=== PATIENT | male | born 1950 | race Caucasian/White ===

== ENCOUNTER 2018-01-29 04:28 | Emergency (ER) | payer MEDICARE, MEDICAID ==
[~2018-01-29] VITALS: Ht 190.5 cm; Wt 100.0 kg
[~2018-01-29 04:28] MED LIST: AMLO2.5T2 PO; APIX5TAB3 PO; GABA800T2 PO; LEVO300T2 PO; LEVO5TAB13 PO; LISI40TA4 PO; METF500T7 PO; ROSU10TA PO; TRAM50TA2 PO; WALKERFR
[2018-01-29 07:30] VITALS: BP 117/77
== END 2018-01-29 07:32 | disposition home or self-care (01) ==
LOC: ER 04:29
DX: H61.23 Impacted cerumen, bilateral (principal); E11.9 Type 2 diabetes mellitus without complications; I10 Essential (primary) hypertension; Z98.890 Other specified postprocedural states; Z79.84 Long term (current) use of oral hypoglycemic drugs; Z88.8 Allergy status to other drugs, medicaments and biological substances; Z79.899 Other long term (current) drug therapy
CPT/HCPCS: 69210; 99284

== ENCOUNTER 2019-10-19 08:01 | Emergency (ER) | payer MEDICARE, MEDICAID ==
[~2019-10-19] VITALS: Ht 185.4 cm; Wt 100.0 kg
[~2019-10-19 08:01] MED LIST changes: +GABA800T11 PO; -GABA800T2 PO; +METF500T20 PO; -METF500T7 PO; -ROSU10TA PO; +ROSU10TA2 PO
[2019-10-19 08:13] VITALS: BP 122/49
[2019-10-19] MEDS ORDERED: bupivacaine 0.25%/epinephrine 1:200,000 inj (contains preserv. MDV) IJ ONE (08:25)
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
== END 2019-10-19 10:08 | disposition home or self-care (01) ==
LOC: ER 08:02
DX: S46.911A Strain of unspecified muscle, fascia and tendon at shoulder and upper arm level, right arm, initial encounter (principal); I48.91 Unspecified atrial fibrillation; I10 Essential (primary) hypertension; E11.9 Type 2 diabetes mellitus without complications; Z98.890 Other specified postprocedural states; Z88.5 Allergy status to narcotic agent; Z88.8 Allergy status to other drugs, medicaments and biological substances; Z79.01 Long term (current) use of anticoagulants; Z79.899 Other long term (current) drug therapy; W18.40XA Slipping, tripping and stumbling without falling, unspecified, initial encounter; Y93.89 Activity, other specified; Y92.009 Unspecified place in unspecified non-institutional (private) residence as the place of occurrence of the external cause; Y99.8 Other external cause status
CPT/HCPCS: 20552; 73030; 93005; 99284

== ENCOUNTER 2020-02-05 15:07 | Emergency (ER) | payer MEDICARE, MEDICAID ==
[~2020-02-05] VITALS: Ht 185.4 cm; Wt 105.8 kg
[~2020-02-05 15:07] MED LIST changes: +METF-900 PO; -METF500T20 PO
[2020-02-05 17:20] LABS: BASOPHILS # (AUTO) 0.1 X10'3 (0-0.2); EOSINOPHILS # (AUTO) 0.2 X10'3 (0-0.9); EOSINOPHILS % (AUTO) 2.2 % (0-6); HEMOGLOBIN 17.1 g/dl (14.0-17.9); MEAN CORPUSCULAR VOLUME 89.7 FL (78-98)
[2020-02-05 17:22] LABS: BASOPHILS % (AUTO) 0.9 % (0-1); HEMATOCRIT 50.2 % (42.0-52.0); LYMPHOCYTES # (AUTO) 2.4 X10'3 (1.1-4.8); LYMPHOCYTES % (AUTO) 27.6 % (21-51); MEAN CORPUSCULAR HEMOGLOBIN 30.5 PG (27.0-31.0); MEAN PLATELET VOLUME 8.3 FL (7.4-10.4); MONOCYTES # (AUTO) 0.7 X10'3 (0-0.9); MONOCYTES % (AUTO) 8.5 % (2-12); NEUTROPHILS # (AUTO) 5.2 X10'3 (1.8-7.7); NEUTROPHILS % (AUTO) 60.8 % (42-75); PLATELET COUNT 172 X10'3 (140-440); RED CELL DISTRIBUTION WIDTH 13.8 % (11.5-14.5); WHITE BLOOD COUNT 8.5 X10'3 (4.5-11.0)
[2020-02-05 17:45] LABS: ALANINE AMINOTRANSFERASE 58 U/L (12-78); ALBUMIN/GLOBULIN RATIO 1.2 (1.1-1.5); ALKALINE PHOSPHATASE 113 IU/L (46-116); ANION GAP 14 (8-16); ASPARTATE AMINO TRANSFERASE 24 U/L (10-37); BILIRUBIN,TOTAL 0.4 MG/DL (0.1-1.0); BLOOD UREA NITROGEN 21 MG/DL (7-18); BUN/CREATININE RATIO 16.3 (5.4-32.0); CALCIUM 9.1 MG/DL (8.5-10.1); CHLORIDE 103 MMOL/L (99-107); CREATININE 1.29 MG/DL (0.60-1.10); GLUCOSE 122 MG/DL (70-104); POTASSIUM 4.5 MMOL/L (3.5-5.1); SODIUM 140 MMOL/L (135-145); TOTAL CARBON DIOXIDE 23.3 MMOL/L (24-32); TOTAL PROTEIN 7.3 G/DL (6.4-8.2); eGFR 55 ML/MIN
[2020-02-05 18:00] LABS: CLARITY,URINE CLEAR (Clear); COLOR,URINE YELLOW (Yellow); GLUCOSE, URINE 250 mg/dl (Neg); KETONES,URINE NEGATIVE (Neg); LEUKOCYTE ESTERASE ,URINE NEGATIVE (Neg); NITRITES, URINE NEGATIVE (Neg); OCCULT BLOOD,URINE SMALL (Neg); PH,URINE 5.5 (4.8-8.0); PROTEIN,URINE NEGATIVE (Neg); UROBILINOGEN,URINE 0.2 E.U/dL (0.2-1.0)
[2020-02-05 18:03] LABS: UA COLLECTION TYPE CLN CATCH MIDSTREAM
[2020-02-05 18:21] LABS: BACTERIA,URINE NONE SEEN /HPF (Neg); RBC,URINE 0-2 /HPF (0-2); SQUAMOUS EPITHELIAL CELL,UR NONE SEEN /LPF (FEW); WBC,URINE NONE SEEN /HPF (0-4)
[2020-02-05 18:52] VITALS: BP 125/92
== END 2020-02-05 18:50 | disposition home or self-care (01) ==
LOC: ER 15:07
DX: S00.411A Abrasion of right ear, initial encounter (principal); H91.91 Unspecified hearing loss, right ear; R42 Dizziness and giddiness; I48.91 Unspecified atrial fibrillation; I10 Essential (primary) hypertension; E11.42 Type 2 diabetes mellitus with diabetic polyneuropathy; Z98.890 Other specified postprocedural states; Z88.6 Allergy status to analgesic agent; Z88.8 Allergy status to other drugs, medicaments and biological substances; Z79.01 Long term (current) use of anticoagulants; Z79.899 Other long term (current) drug therapy; X58.XXXA Exposure to other specified factors, initial encounter; Y93.89 Activity, other specified; Y92.89 Other specified places as the place of occurrence of the external cause; Y99.8 Other external cause status
CPT/HCPCS: 36415; 70450; 71045; 80053; 81001; 82948; 83735; 84484; 85025; 93005; 99285

== ENCOUNTER 2020-12-24 07:12 | Day surgery (SDC) | payer MEDICARE, MEDICAID ==
[2020-12-23 09:49] LABS: BASOPHILS # (AUTO) 0.1 X10'3 (0-0.2); BASOPHILS % (AUTO) 0.7 % (0-1); EOSINOPHILS # (AUTO) 0.2 X10'3 (0-0.9); EOSINOPHILS % (AUTO) 2.1 % (0-6); HEMATOCRIT 50.5 % (42.0-52.0); HEMOGLOBIN 17.2 g/dl (14.0-17.9); LYMPHOCYTES # (AUTO) 1.8 X10'3 (1.1-4.8); LYMPHOCYTES % (AUTO) 18.9 % (21-51); MEAN CORPUSCULAR HEMOGLOBIN 30.6 PG (27.0-31.0); MEAN CORPUSCULAR HGB CONC 34.1 g/dL (33.0-36.5); MEAN CORPUSCULAR VOLUME 89.6 FL (78-98); MEAN PLATELET VOLUME 8.9 FL (7.4-10.4); MONOCYTES # (AUTO) 0.9 X10'3 (0-0.9); MONOCYTES % (AUTO) 8.7 % (2-12); NEUTROPHILS # (AUTO) 6.8 X10'3 (1.8-7.7); NEUTROPHILS % (AUTO) 69.6 % (42-75); PLATELET COUNT 170 X10'3 (140-440); RED BLOOD COUNT 5.64 X10'6 (4.70-6.10); WHITE BLOOD COUNT 9.8 X10'3 (4.5-11.0)
[2020-12-23 09:54] LABS: ALBUMIN 4.1 G/DL (3.4-5.0); ANION GAP 14 (8-16); BLOOD UREA NITROGEN 16 MG/DL (7-18); CALCIUM 9.4 MG/DL (8.5-10.1); CHLORIDE 106 MMOL/L (99-107); CREATININE 1.23 MG/DL (0.60-1.10); GLUCOSE 102 MG/DL (70-104); POTASSIUM 4.4 MMOL/L (3.5-5.1); SODIUM 143 MMOL/L (135-145); TOTAL CARBON DIOXIDE 23.3 MMOL/L (24-32); eGFR 58 ML/MIN
[~2020-12-24] VITALS: Ht 185.4 cm; Wt 102.0 kg
[2020-12-24] VITALS (12 sets, daily range): BP systolic 98–143; BP diastolic 58–88
[~2020-12-24 07:12] MED LIST changes: +LISI40TA13 PO; -LISI40TA4 PO
[2020-12-24] MEDS ORDERED: cefazolin/dext.iso 2gm/100ml 100 ML IV ONE (07:35)
[2020-12-24] MEDS ORDERED: LISI10TA27 PO (08:13)
[2020-12-24] MEDS ORDERED: LEVO175T7 PO (08:13)
[2020-12-24] MEDS ORDERED: OMEG1CAP2 PO (08:18)
[2020-12-24] MEDS ORDERED: ROSU20TA31 PO (08:18)
[2020-12-24] MEDS ORDERED: ZOLP5TAB8 PO (08:18)
[2020-12-24] MEDS ORDERED: MULT-1085 PO (08:18)
[2020-12-24] MEDS ORDERED: DULO60CA65 PO (08:18)
[2020-12-24] MEDS ORDERED: PREG100C55 PO (08:18)
[2020-12-24] MEDS ORDERED: fentaNYL/PF 50MCG/1 ML 2ML syringe ONE (09:09)
[2020-12-24] MEDS ORDERED: midazolam 1 mg/ML 2ml injection ONE (09:09)
[2020-12-24] MEDS ORDERED: LIDOcaine 1% W/epiNEPHrine 1:100,000 20ml vial ONE (09:09)
[2020-12-24] MEDS ORDERED: ceFAZolin 1000mg inj ONE (09:09)
[2020-12-24] MEDS ORDERED: HYDROcodone/acetaminophen 10/325mg tab PO PRN (11:40)
[2020-12-24] MEDS ORDERED: HYDROcodone/acetaminophen 5mg/325mg tablet PO PRN (11:40)
[2020-12-24] MEDS ORDERED: vancomycin/NS 1 GM ADD-VANTAGE 250 ML X 1 DOSE IV ONE (13:00)
== END 2020-12-24 16:20 | disposition home or self-care (01) ==
LOC: SSTAY O 07:12
PROVIDERS: ATTEND Internal Medicine Cardiovascular Disease
DX: I49.5 Sick sinus syndrome (principal); I48.3 Typical atrial flutter; I48.91 Unspecified atrial fibrillation; I10 Essential (primary) hypertension; I35.0 Nonrheumatic aortic (valve) stenosis; E78.5 Hyperlipidemia, unspecified; E11.9 Type 2 diabetes mellitus without complications; G47.33 Obstructive sleep apnea (adult) (pediatric); Z79.01 Long term (current) use of anticoagulants; Z79.899 Other long term (current) drug therapy
CPT/HCPCS: 33207; 36415; 71046; 80048; 82948; 85025; 93005; 99152; 99153; C1786; C1894; C1898; J0690; J2250; J3010; J3370; A4565; A4620; A6449

== ENCOUNTER 2021-03-03 06:26 | Emergency (ER) | payer MEDICARE, MEDICAID ==
[~2021-03-03] VITALS: Ht 185.4 cm; Wt 104.5 kg
[~2021-03-03 06:26] MED LIST changes: +DULO60CA65 PO; -GABA800T11 PO; +LEVO175T7 PO; -LEVO300T2 PO; -LEVO5TAB13 PO; +LISI10TA27 PO; -LISI40TA13 PO; +MULT-1085 PO; +OMEG1CAP2 PO; +PREG100C55 PO; -ROSU10TA2 PO; +ROSU20TA31 PO; -TRAM50TA2 PO; +ZOLP5TAB8 PO
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
[2021-03-03 09:15] VITALS: BP 115/74
== END 2021-03-03 09:25 | disposition home or self-care (01) ==
LOC: ER 06:26
DX: K40.90 Unilateral inguinal hernia, without obstruction or gangrene, not specified as recurrent (principal); R10.31 Right lower quadrant pain; I48.91 Unspecified atrial fibrillation; E78.00 Pure hypercholesterolemia, unspecified; I10 Essential (primary) hypertension; E11.9 Type 2 diabetes mellitus without complications; Z95.0 Presence of cardiac pacemaker; Z98.890 Other specified postprocedural states; Z72.89 Other problems related to lifestyle; Z88.8 Allergy status to other drugs, medicaments and biological substances; Z88.6 Allergy status to analgesic agent; Z79.899 Other long term (current) drug therapy
CPT/HCPCS: 74176; 76881; 99285

== ENCOUNTER 2021-05-21 07:48 | Outpatient (CLI) | payer MEDICARE, MEDICAID ==
[~2021-05-21] VITALS: Ht 185.4 cm; Wt 108.0 kg
[2021-05-21] MEDS ORDERED: aminophylline 250mg/10ml inj. IV PRN (08:35)
[2021-05-21] MEDS ORDERED: normal saline 500ml IV soln 500 ML IV ONE (08:35)
[2021-05-21] MEDS ORDERED: regadenoson 0.4mg/5ml syringe IV PRN (08:35)
[2021-05-21] MEDS ORDERED: nitroGLYCERIN 0.4mg SUBLingual tab SL PRN (08:35)
[2021-05-21 09:14] VITALS: BP 155/87
[2021-05-21 09:27] VITALS: BP 145/68
[2021-05-21 09:28] VITALS: BP 116/64
[2021-05-21 09:29] VITALS: BP 127/66
[2021-05-21 09:30] VITALS: BP 114/62
[2021-05-21 09:31] VITALS: BP 116/73
== END 2021-05-21 23:59 | disposition home or self-care (01) ==
LOC: RAD 07:48
PROVIDERS: ATTEND Internal Medicine Cardiovascular Disease
DX: I48.91 Unspecified atrial fibrillation (principal)
CPT/HCPCS: 78452; A9500; J2785; J7040

== ENCOUNTER 2021-06-05 05:19 | Day surgery (SDC) | payer MEDICARE, MEDICAID ==
[2021-05-29 15:18] LABS: BASOPHILS # (AUTO) 0.1 X10'3 (0-0.2); EOSINOPHILS # (AUTO) 0.2 X10'3 (0-0.9); EOSINOPHILS % (AUTO) 1.9 % (0-6); LYMPHOCYTES # (AUTO) 2.6 X10'3 (1.1-4.8); LYMPHOCYTES % (AUTO) 29.7 % (21-51); MEAN CORPUSCULAR HEMOGLOBIN 30.5 PG (27.0-31.0); MEAN CORPUSCULAR HGB CONC 34.2 g/dL (33.0-36.5); MEAN CORPUSCULAR VOLUME 89.1 FL (78-98); MEAN PLATELET VOLUME 9.1 FL (7.4-10.4); MONOCYTES # (AUTO) 0.7 X10'3 (0-0.9); MONOCYTES % (AUTO) 7.8 % (2-12); NEUTROPHILS # (AUTO) 5.1 X10'3 (1.8-7.7); NEUTROPHILS % (AUTO) 59.6 % (42-75); PRE OP HEMATOCRIT 50.9 % (42.0-52.0); PRE OP HEMOGLOBIN 17.4 g/dL (14.0-17.9); PRE OP PLATELET COUNT 168 X10'3 (140-440); RED BLOOD COUNT 5.71 X10'6 (4.70-6.10)
[2021-05-29 15:42] LABS: ALBUMIN 4.1 G/DL (3.4-5.0); ALBUMIN/GLOBULIN RATIO 1.2 (1.1-1.5); ALKALINE PHOSPHATASE 110 IU/L (46-116); BLOOD UREA NITROGEN 36 MG/DL (7-18); BUN/CREATININE RATIO 21.2 (5.4-32.0); CALCIUM 9.1 MG/DL (8.5-10.1); CHLORIDE 103 MMOL/L (99-107); PRE OP ALT 65 U/L (30-65); PRE OP ANION GAP 11 (8-16); PRE OP AST 27 U/L (10-37); PRE OP BILIRUB, TOTAL 0.6 MG/DL (0.0-1.0); PRE OP POTASSIUM 4.8 MMOL/L (3.4-5.1); PRE OP SODIUM 141 MMOL/L (135-145); TOTAL CARBON DIOXIDE 26.9 MMOL/L (24-32); TOTAL PROTEIN 7.5 G/DL (6.4-8.2); eGFR 40 ML/MIN
[2021-05-29 15:46] LABS: PRE OP GLUCOSE 227 MG/DL (70-104)
[~2021-06-05] VITALS: Ht 185.4 cm; Wt 109.6 kg
[2021-06-05] VITALS (27 sets, daily range): BP systolic 78–123; BP diastolic 51–84
[~2021-06-05 05:19] MED LIST changes: +FLO0.4C PO; +METF-950 PO; -MULT-1085 PO; -OMEG1CAP2 PO; -WALKERFR; +ringers solution, lacted 1,000 ML IV SCH
[2021-06-05] MEDS ORDERED: famotidine 20mg tablet PO ONE (05:30)
[2021-06-05] MEDS ORDERED: cefazolin/dext.iso 2gm/100ml IV ONE (05:30)
[2021-06-05] MEDS ORDERED: BUPIVAcaine/PF 2.5mg/ml (0.25%) 10ml vial ONE (06:48)
[2021-06-05] MEDS ORDERED: LIDOcaine 1% 30ml preserv. free vial ONE (06:48)
[2021-06-05] MEDS ORDERED: fentaNYL/PF 50MCG/1 ML 2ML syringe ONE (07:37)
[2021-06-05] MEDS ORDERED: propofol inj 20 ML IV ONE (07:38)
[2021-06-05] MEDS ORDERED: rocuronium 10mg/ml inj IV ONE (07:38)
[2021-06-05] MEDS ORDERED: dexamethasone sod phosphate 4mg/ml inj. ONE (07:50)
[2021-06-05] MEDS ORDERED: ringers solution, lacted 1,000 ML IV SCH (08:35)
[2021-06-05] MEDS ORDERED: morphine 4 MG/ML inj SYRINge IV PRN (08:35)
[2021-06-05] MEDS ORDERED: morphine 2 MG/ML inj. syringe IV PRN (08:35)
[2021-06-05] MEDS ORDERED: albuterol 2.5 MG/3 ML nebule NEB ONE (08:35)
[2021-06-05] MEDS ORDERED: meperidine/PF 25mg/ml syringe IV PRN ×2 (08:35)
[2021-06-05] MEDS ORDERED: proCHLORperazine 10 MG/2 ml inj IV PRN (08:35)
[2021-06-05] MEDS ORDERED: ondansetron/PF 4mg/2ml inj IV PRN (08:35)
[2021-06-05] MEDS ORDERED: ondansetron/PF 4mg/2ml inj ONE (09:18)
[2021-06-05] MEDS ORDERED: sugammadex 200mg/2ml injection IV ONE (09:23)
--- NOTE | 2021-06-05 09:34 | NUR ---
Received from OR via [facility], accompanied by Anesthesiologist DR LEE and report given by Anesthesiologist AND QUALITY ASSURANCE GROUP LEADER. PT DROWSY, DENIES PAIN. PT W/3 LAP SITES W/INDIGO BARAHONA. Addendum: 06/05/21 at 1000 by Crystal Miller RN Amended: Links added.
[2021-06-05] MEDS: meperidine/PF 25mg/ml syringe IV PRN ×4 (09:50→10:54)
[2021-06-05] MEDS ORDERED: HYDROcodone/acetaminophen 5mg/325mg tablet PO PRN (09:50)
[2021-06-05] MEDS ORDERED: ringers solution, lacted 1,000 ML IV ONE (10:40)
--- NOTE | 2021-06-05 11:21 | NUR ---
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 PT VERY AGREEABLE AND WILLING TO DO BREATHING EXERCISES. PT STATES PAIN IS TOLERABLE. Addendum: 06/05/21 at 1125 by Crystal Miller RN Amended: Links added.
--- NOTE | 2021-06-05 14:54 | NUR ---
PT UP AND AMBULATED SEVERAL TIMES W/IMPROVEMENT IN SA02 92-95% ON R/A. PT WAS BLADDER SCANNED PRIOR TO AMBULATION FOR 343 ML. PT WAS ABLE TO VOID LARGE AMT OF URINE, RESCANNED BLADDER POST VOID W/5 ML ON SCAN. 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 D/C INSTRUCTIONS GIVEN AND GONE OVER W/PT WHO VERBALIZED UNDERSTANDING. PT D/CD TO HOME VIA W/C TO PRIVATE VEHICLE W/O INCIDENT. Addendum: 06/05/21 at 1614 by Crystal Miller RN Amended: Links added.
== END 2021-06-05 14:54 | disposition home or self-care (01) ==
LOC: PAS 05:19
PROVIDERS: ATTEND Surgery
DX: K40.20 Bilateral inguinal hernia, without obstruction or gangrene, not specified as recurrent (principal); M19.90 Unspecified osteoarthritis, unspecified site; F32.9 Major depressive disorder, single episode, unspecified; I10 Essential (primary) hypertension; I48.91 Unspecified atrial fibrillation; E03.9 Hypothyroidism, unspecified; F41.9 Anxiety disorder, unspecified; E11.40 Type 2 diabetes mellitus with diabetic neuropathy, unspecified; E78.5 Hyperlipidemia, unspecified; N40.0 Benign prostatic hyperplasia without lower urinary tract symptoms; Z20.822 Contact with and (suspected) exposure to COVID-19; Z79.899 Other long term (current) drug therapy; Z98.890 Other specified postprocedural states; Z88.8 Allergy status to other drugs, medicaments and biological substances; Z95.0 Presence of cardiac pacemaker; Z79.01 Long term (current) use of anticoagulants; Z96.651 Presence of right artificial knee joint; Z82.49 Family history of ischemic heart disease and other diseases of the circulatory system; Z80.0 Family history of malignant neoplasm of digestive organs; Z83.3 Family history of diabetes mellitus; Z82.61 Family history of arthritis
CPT/HCPCS: 36415; 49650; 71046; 80053; 82948; 85025; 94640; C1781; C9399; J1100; J2001; J2175; J2405; J2704; J3010; J3490; U0003; U0005; Z7506; Z7508; Z7512; A4215; A4618; J7120

== ENCOUNTER 2021-10-21 06:35 | Day surgery (SDC) | payer MEDICARE, MEDICAID ==
[2021-10-20 13:35] LABS: BASOPHILS # (AUTO) 0.1 X10'3 (0-0.2); EOSINOPHILS # (AUTO) 0.2 X10'3 (0-0.9); LYMPHOCYTES # (AUTO) 1.9 X10'3 (1.1-4.8); LYMPHOCYTES % (AUTO) 23.9 % (21-51); MEAN CORPUSCULAR HEMOGLOBIN 29.7 PG (27.0-31.0); MEAN CORPUSCULAR HGB CONC 33.5 g/dL (33.0-36.5); MEAN CORPUSCULAR VOLUME 88.7 FL (78-98); MEAN PLATELET VOLUME 9.5 FL (7.4-10.4); MONOCYTES # (AUTO) 0.6 X10'3 (0-0.9); MONOCYTES % (AUTO) 7.8 % (2-12); NEUTROPHILS # (AUTO) 5.2 X10'3 (1.8-7.7); NEUTROPHILS % (AUTO) 64.3 % (42-75); PRE OP HEMATOCRIT 49.9 % (42.0-52.0); PRE OP HEMOGLOBIN 16.7 g/dL (14.0-17.9); PRE OP PLATELET COUNT 143 X10'3 (140-440); RED BLOOD COUNT 5.63 X10'6 (4.70-6.10); RED CELL DISTRIBUTION WIDTH 13.8 % (11.5-14.5)
[2021-10-20 14:11] LABS: ALBUMIN/GLOBULIN RATIO 1.4 (1.1-1.5); ALKALINE PHOSPHATASE 112 IU/L (46-116); BLOOD UREA NITROGEN 22 MG/DL (7-18); BUN/CREATININE RATIO 15.5 (5.4-32.0); CALCIUM 8.9 MG/DL (8.5-10.1); CHLORIDE 102 MMOL/L (99-107); CREATININE 1.42 MG/DL (0.60-1.10); PRE OP ALT 67 U/L (30-65); PRE OP ANION GAP 13 (8-16); PRE OP AST 42 U/L (10-37); PRE OP BILIRUB, TOTAL 0.5 MG/DL (0.0-1.0); PRE OP POTASSIUM 4.6 MMOL/L (3.4-5.1); PRE OP SODIUM 141 MMOL/L (135-145); TOTAL CARBON DIOXIDE 26.2 MMOL/L (24-32); TOTAL PROTEIN 6.8 G/DL (6.4-8.2); eGFR 49 ML/MIN
[2021-10-20 14:13] LABS: PRE OP GLUCOSE 225 MG/DL (70-104)
[~2021-10-21] VITALS: Ht 185.4 cm; Wt 110.4 kg
[2021-10-21] VITALS (11 sets, daily range): BP systolic 83–141; BP diastolic 53–81
[~2021-10-21 06:35] MED LIST changes: +METF-1203 PO; -METF-900 PO; -METF-950 PO; +cefazolin/dext.iso 2gm/50ml IV ONE; +famotidine 20mg tablet PO ONE
[2021-10-21] MEDS ORDERED: LIDOcaine 1% 30ml preserv. free vial ONE (06:42)
[2021-10-21] MEDS ORDERED: BUPIVAcaine 0.5% inj/PF 30 ML ONE (06:42)
[2021-10-21] MEDS ORDERED: fentaNYL /PF 50mcg/ml 5ml ampule ONE (07:58)
[2021-10-21] MEDS ORDERED: midazolam 1 mg/ML 2ml injection ONE (07:58)
[2021-10-21] MEDS ORDERED: morphine 4 MG/ML inj SYRINge IV PRN (08:05)
[2021-10-21] MEDS ORDERED: meperidine/PF 25mg/ml syringe IV PRN ×3 (08:05)
[2021-10-21] MEDS ORDERED: ringers solution, lacted 1,000 ML IV SCH (08:05)
[2021-10-21] MEDS ORDERED: ondansetron/PF 4mg/2ml inj IV PRN (08:05)
[2021-10-21] MEDS ORDERED: proCHLORperazine 10 MG/2 ml inj IV PRN (08:05)
[2021-10-21] MEDS ORDERED: morphine 2 MG/ML inj. syringe IV PRN (08:05)
[2021-10-21] MEDS ORDERED: BUPIVAcaine 0.5% inj/PF 30 ml vial IJ ONE (08:42)
[2021-10-21] MEDS ORDERED: phenylephrine 10mg/ml inj. ONE (09:01)
[2021-10-21] MEDS ORDERED: propofol inj 20 ML IV ONE (09:01)
[2021-10-21] MEDS ORDERED: rocuronium 10mg/ml inj IV ONE (09:01)
[2021-10-21] MEDS ORDERED: neostigmine methylsulfate 1 MG/ML 10ml vial ONE (09:12)
[2021-10-21] MEDS ORDERED: glycopyrrolate 0.2mg/ml inj ONE (09:12)
--- NOTE | 2021-10-21 09:25 | NUR ---
Received from OR via [facility] IN STABLE CONDITION , accompanied by Anesthesiologist and COIL REWIND MACHINE OPERATOR report given by COIL REWIND MACHINE OPERATOR AND Anesthesiolgist. Addendum: 10/21/21 at 1000 by Criss Espinosa RN Amended: Links added.
[2021-10-21] MEDS ORDERED: HYDROcodone/acetaminophen 5mg/325mg tablet PO PRN (09:40)
--- NOTE | 2021-10-21 11:15 | NUR ---
PATIENT DISCHARGED FROM THE PACU IN STABLE CONDITION AFTER WRITTEN AND VERBAL DISCHARGE INSTRUCTIONS GIVEN. PATIENT GAVE VERBAL UNDERSTANDING OF INSTRUCTIONS GIVEN. PATIENT LEFT FACILITY VIA WHEELCHAIR WITH RN. Addendum: 10/21/21 at 1132 by Criss Espinosa RN Amended: Links added.
== END 2021-10-21 11:15 | disposition home or self-care (01) ==
LOC: PAS 06:35
PROVIDERS: ATTEND Surgery
DX: K43.2 Incisional hernia without obstruction or gangrene (principal); E03.9 Hypothyroidism, unspecified; F32.A Depression, unspecified; M19.90 Unspecified osteoarthritis, unspecified site; N40.0 Benign prostatic hyperplasia without lower urinary tract symptoms; I48.91 Unspecified atrial fibrillation; I10 Essential (primary) hypertension; E11.40 Type 2 diabetes mellitus with diabetic neuropathy, unspecified; Z95.0 Presence of cardiac pacemaker; Z88.8 Allergy status to other drugs, medicaments and biological substances; Z20.822 Contact with and (suspected) exposure to COVID-19; Z96.651 Presence of right artificial knee joint; Z98.890 Other specified postprocedural states; Z87.891 Personal history of nicotine dependence; Z79.01 Long term (current) use of anticoagulants; Z79.899 Other long term (current) drug therapy; Z79.84 Long term (current) use of oral hypoglycemic drugs; Z83.3 Family history of diabetes mellitus; Z82.49 Family history of ischemic heart disease and other diseases of the circulatory system; Z82.61 Family history of arthritis; Z80.0 Family history of malignant neoplasm of digestive organs
CPT/HCPCS: 36415; 49560; 49568; 80053; 82948; 85025; 87635; C1781; C9803; J0690; J2175; J2250; J2370; J2704; J2710; J3010; J3490; J7030; J7120; S0020; Z7506; Z7508; Z7512; A4215; A4618; A7000

== ENCOUNTER 2023-07-02 04:03 | Emergency (ER) | payer MEDICARE, MEDICAID ==
[~2023-07-02] VITALS: Ht 185.4 cm; Wt 118.4 kg
[~2023-07-02 04:03] MED LIST changes: -PREG100C55 PO; +PREG100C56 PO; -ROSU20TA31 PO; +ROSU20TA73 PO; -cefazolin/dext.iso 2gm/50ml IV ONE; -famotidine 20mg tablet PO ONE; -ringers solution, lacted 1,000 ML IV SCH
[2023-07-02 04:09] VITALS: RESP 18; TEMP 97.4
[2023-07-02] MEDS ORDERED: HYDROcodone/acetaminophen 10/325mg tab PO ONE (04:55)
[2023-07-02 05:06] VITALS: BP 121/70; PULSE 95; O2SAT 95
== END 2023-07-02 05:08 | disposition home or self-care (01) ==
LOC: ER 04:04
DX: M79.604 Pain in right leg (principal); E78.00 Pure hypercholesterolemia, unspecified; E11.9 Type 2 diabetes mellitus without complications; I10 Essential (primary) hypertension; Z88.8 Allergy status to other drugs, medicaments and biological substances; Z88.5 Allergy status to narcotic agent; Z79.899 Other long term (current) drug therapy
CPT/HCPCS: 99283

== ENCOUNTER 2023-07-15 10:32 | Emergency (ER) | payer MEDICARE, MEDICAID ==
[~2023-07-15] VITALS: Ht 185.4 cm; Wt 110.5 kg
--- NOTE | 2023-07-15 11:23 | NUR ---
PT WITH C/O RED, PAINFUL RLE. RLE IS RED WARM AND PAINFUL TO THE TOUCH.
[2023-07-15 12:37] VITALS: TEMP 98
--- NOTE | 2023-07-15 12:39 | NUR ---
DR MORALES AT BEDSIDE,NOTIFIED ABOUT UNABLE TO PALPATE RGT DORSIPEDIS PULSE.
--- NOTE | 2023-07-15 12:42 | NUR ---
FELT VERY THREADY RGT DORSIPEDIS PULSE, PER DR MORALES HE CAN FEEL STRONG PULSE .
[2023-07-15 13:12] LABS: BASOPHILS # (AUTO) 0.1 X10'3 (0-0.2); BASOPHILS % (AUTO) 0.9 % (0-1); EOSINOPHILS # (AUTO) 0.3 X10'3 (0-0.9); EOSINOPHILS % (AUTO) 2.3 % (0-6); HEMATOCRIT 45.1 % (42.0-52.0); LYMPHOCYTES # (AUTO) 1.7 X10'3 (1.1-4.8); LYMPHOCYTES % (AUTO) 13.3 % (21-51); MEAN CORPUSCULAR HEMOGLOBIN 29.9 PG (27.0-31.0); MEAN CORPUSCULAR HGB CONC 33.3 g/dL (33.0-36.5); MEAN PLATELET VOLUME 8.1 FL (7.4-10.4); MONOCYTES % (AUTO) 8.1 % (2-12); NEUTROPHILS # (AUTO) 9.6 X10'3 (1.8-7.7); NEUTROPHILS % (AUTO) 75.4 % (42-75); PLATELET COUNT 324 X10'3 (140-440); RED BLOOD COUNT 5.02 X10'6 (4.70-6.10); RED CELL DISTRIBUTION WIDTH 13.8 % (11.5-14.5); WHITE BLOOD COUNT 12.8 X10'3 (4.5-11.0)
[2023-07-15 13:22] LABS: D-DIMER 0.45 MG/L FEU (0-0.50)
[2023-07-15 13:26] LABS: ALANINE AMINOTRANSFERASE 50 U/L (12-78); ALBUMIN 2.8 G/DL (3.4-5.0); ALBUMIN/GLOBULIN RATIO 0.7 (1.1-1.5); ALKALINE PHOSPHATASE 114 IU/L (46-116); ANION GAP 9 (8-16); ASPARTATE AMINO TRANSFERASE 79 U/L (10-37); BILIRUBIN,TOTAL 0.3 MG/DL (0.1-1.0); BLOOD UREA NITROGEN 19 MG/DL (7-18); BUN/CREATININE RATIO 17.3 (10.0-20.0); CALCIUM 9.5 MG/DL (8.5-10.1); CHLORIDE 102 MMOL/L (99-107); GLUCOSE 147 MG/DL (70-104); POTASSIUM 4.1 MMOL/L (3.5-5.1); SODIUM 138 MMOL/L (135-145); TOTAL CARBON DIOXIDE 26.7 MMOL/L (24-32); TOTAL PROTEIN 6.7 G/DL (6.4-8.2); eCRCL 67 ML/MIN; eGFR 65 ML/MIN
[2023-07-15] MEDS ORDERED: SULF1TAB49 PO (13:39)
[2023-07-15 14:20] VITALS: BP 124/77; PULSE 60; RESP 16; O2SAT 93
== END 2023-07-15 14:23 | disposition home or self-care (01) ==
LOC: ER 10:32
DX: L03.115 Cellulitis of right lower limb (principal); E78.00 Pure hypercholesterolemia, unspecified; I10 Essential (primary) hypertension; E11.9 Type 2 diabetes mellitus without complications; Z88.5 Allergy status to narcotic agent; Z88.8 Allergy status to other drugs, medicaments and biological substances; Z79.899 Other long term (current) drug therapy
CPT/HCPCS: 36415; 80053; 83605; 85025; 85379; 87040; 99284

== ENCOUNTER 2024-03-07 12:37 | Emergency (ER) | payer MEDICARE, MEDICAID ==
[~2024-03-07] VITALS: Ht 185.4 cm; Wt 113.0 kg
[2024-03-07] MEDS ORDERED: DYN250C PO (14:27)
[2024-03-07 14:38] VITALS: BP 160/78; PULSE 80; RESP 20; TEMP 97.8; O2SAT 96
== END 2024-03-07 14:41 | disposition home or self-care (01) ==
LOC: ER 12:38
DX: M71.521 Other bursitis, not elsewhere classified, right elbow (principal); I10 Essential (primary) hypertension; E78.00 Pure hypercholesterolemia, unspecified; E11.9 Type 2 diabetes mellitus without complications; Z88.8 Allergy status to other drugs, medicaments and biological substances; Z88.5 Allergy status to narcotic agent; Z79.899 Other long term (current) drug therapy; Z79.2 Long term (current) use of antibiotics
CPT/HCPCS: 73080; 99283

== ENCOUNTER 2024-04-19 09:02 | Outpatient (CLI) | payer MEDICARE, MEDICAID ==
[~2024-04-19 09:02] MED LIST changes: +AMLO10TA13 PO; -AMLO2.5T2 PO; +ASPI-1071 PO; +BUDE10.7 INH; +DOXA2TAB92 PO; -FLO0.4C PO; +GLIP5TAB23 PO; +LEVO175C2 PO; -LEVO175T7 PO; -METF-1203 PO; +METF-438 PO; -PREG100C56 PO; +PREG300C PO; -ZOLP5TAB8 PO
[2024-04-19 09:44] LABS: BASOPHILS # (AUTO) 0.1 X10'3 (0-0.2); BASOPHILS % (AUTO) 1.1 % (0-1); EOSINOPHILS # (AUTO) 0.4 X10'3 (0-0.9); EOSINOPHILS % (AUTO) 4.8 % (0-6); HEMATOCRIT 46.3 % (42.0-52.0); HEMOGLOBIN 15.4 g/dl (14.0-17.9); LYMPHOCYTES # (AUTO) 1.8 X10'3 (1.1-4.8); LYMPHOCYTES % (AUTO) 20.7 % (21-51); MEAN CORPUSCULAR HEMOGLOBIN 29.7 PG (27.0-31.0); MEAN CORPUSCULAR HGB CONC 33.2 g/dL (33.0-36.5); MEAN CORPUSCULAR VOLUME 89.6 FL (78-98); MEAN PLATELET VOLUME 10.3 FL (7.4-10.4); MONOCYTES # (AUTO) 0.6 X10'3 (0-0.9); MONOCYTES % (AUTO) 6.8 % (2-12); NEUTROPHILS # (AUTO) 5.7 X10'3 (1.8-7.7); NEUTROPHILS % (AUTO) 66.6 % (42-75); PLATELET COUNT 149 X10'3 (140-440); RED BLOOD COUNT 5.17 X10'6 (4.70-6.10); RED CELL DISTRIBUTION WIDTH 15.3 % (11.5-14.5); WHITE BLOOD COUNT 8.6 X10'3 (4.5-11.0)
[2024-04-19 09:59] LABS: APTT 27 SECONDS (22-32); INR 1.1 INR; PROTHROMBIN TIME 11.9 SECONDS (9.0-12.0)
[2024-04-19 10:18] LABS: ALANINE AMINOTRANSFERASE 46 U/L (12-78); ALBUMIN 3.9 G/DL (3.4-5.0); ALKALINE PHOSPHATASE 83 IU/L (46-116); ANION GAP 9 (8-16); ASPARTATE AMINO TRANSFERASE 41 U/L (10-37); BILIRUBIN,TOTAL 0.5 MG/DL (0.1-1.0); BLOOD UREA NITROGEN 21 MG/DL (7-18); BUN/CREATININE RATIO 15.1 (10.0-20.0); CALCIUM 9.5 MG/DL (8.5-10.1); CHLORIDE 100 MMOL/L (99-107); CREATININE 1.39 MG/DL (0.60-1.10); GLUCOSE 239 MG/DL (70-104); POTASSIUM 4.4 MMOL/L (3.5-5.1); SODIUM 137 MMOL/L (135-145); TOTAL CARBON DIOXIDE 27.6 MMOL/L (24-32); TOTAL PROTEIN 7.8 G/DL (6.4-8.2); eGFR 50 ML/MIN
[2024-04-19] MEDS ORDERED: IODIXANOL 320 MG/ML INFUS..BTL 100ML IV ONE (10:25)
== END 2024-04-19 23:59 | disposition home or self-care (01) ==
LOC: LAB 09:02 → EDSTATUS 10:00 → LAB 23:59
PROVIDERS: ATTEND Internal Medicine Cardiovascular Disease
DX: I35.0 Nonrheumatic aortic (valve) stenosis (principal); K80.20 Calculus of gallbladder without cholecystitis without obstruction; R06.02 Shortness of breath; I65.29 Occlusion and stenosis of unspecified carotid artery
CPT/HCPCS: 36415; 71275; 74174; 75572; 80053; 85025; 85610; 85730; Q9967

== ENCOUNTER 2024-05-03 16:03 | Emergency (ER) | payer MEDICARE, MEDICAID ==
[2024-05-03 16:04] VITALS: TEMP 98
[2024-05-03 18:10] LABS: BASOPHILS # (AUTO) 0.1 X10'3 (0-0.2); EOSINOPHILS # (AUTO) 0.5 X10'3 (0-0.9); EOSINOPHILS % (AUTO) 4.8 % (0-6); HEMOGLOBIN 13.8 g/dl (14.0-17.9); LYMPHOCYTES # (AUTO) 1.9 X10'3 (1.1-4.8); MEAN CORPUSCULAR HEMOGLOBIN 30.4 PG (27.0-31.0); MEAN CORPUSCULAR HGB CONC 33.7 g/dL (33.0-36.5); MEAN CORPUSCULAR VOLUME 90.2 FL (78-98); MEAN PLATELET VOLUME 9.8 FL (7.4-10.4); MONOCYTES # (AUTO) 0.8 X10'3 (0-0.9); MONOCYTES % (AUTO) 8.2 % (2-12); NEUTROPHILS # (AUTO) 7.1 X10'3 (1.8-7.7); PLATELET COUNT 154 X10'3 (140-440); RED BLOOD COUNT 4.54 X10'6 (4.70-6.10); RED CELL DISTRIBUTION WIDTH 15.4 % (11.5-14.5); WHITE BLOOD COUNT 10.4 X10'3 (4.5-11.0)
[2024-05-03 18:25] LABS: ALBUMIN 3.5 G/DL (3.4-5.0); ANION GAP 11 (8-16); BLOOD UREA NITROGEN 39 MG/DL (7-18); BUN/CREATININE RATIO 16.7 (10.0-20.0); CALCIUM 8.2 MG/DL (8.5-10.1); CHLORIDE 108 MMOL/L (99-107); CREATININE 2.34 MG/DL (0.60-1.10); POTASSIUM 4.8 MMOL/L (3.5-5.1); PRO BRAIN NATRIURETIC PEPTIDE 139 PG/ML (0-450); SODIUM 146 MMOL/L (135-145); TOTAL CARBON DIOXIDE 27.4 MMOL/L (24-32); eGFR 27 ML/MIN
[2024-05-03 18:35] LABS: GLUCOSE 131 MG/DL (70-104)
[2024-05-03] MEDS: normal saline 1000ML IV soln IVB ONE (19:36)
[2024-05-03] MEDS: ondansetron 4mg rapidly disintigrating tab PO ONE (19:39)
[2024-05-03] MEDS: LIDOcaine 5% patch TP ONE (19:39)
[2024-05-03] MEDS: HYDROcodone/acetaminophen 5mg/325mg tablet PO ONE (19:40)
[2024-05-03 22:21] LABS: BILIRUBIN,URINE NEGATIVE (Neg); CLARITY,URINE CLEAR (Clear); COLOR,URINE YELLOW (Yellow); GLUCOSE, URINE NEGATIVE (Neg); KETONES,URINE NEGATIVE (Neg); LEUKOCYTE ESTERASE ,URINE NEGATIVE (Neg); NITRITES, URINE NEGATIVE (Neg); OCCULT BLOOD,URINE NEGATIVE (Neg); PH,URINE 5.5 (4.8-8.0); PROTEIN,URINE NEGATIVE (Neg); UA COLLECTION TYPE CLN CATCH MIDSTREAM; UROBILINOGEN,URINE 0.2 E.U/dL (0.2-1.0)
[2024-05-03] MEDS ORDERED: TRAM50TA2 PO (22:38)
[2024-05-03] MEDS ORDERED: LIDO700A32 TOP (22:38)
[2024-05-03 23:29] VITALS: BP 105/48; PULSE 67; RESP 20; O2SAT 93
== END 2024-05-03 23:37 | disposition home or self-care (01) ==
LOC: ER 16:03
DX: S20.212A Contusion of left front wall of thorax, initial encounter (principal); I48.91 Unspecified atrial fibrillation; I10 Essential (primary) hypertension; E78.00 Pure hypercholesterolemia, unspecified; E11.9 Type 2 diabetes mellitus without complications; Z88.8 Allergy status to other drugs, medicaments and biological substances; Z79.899 Other long term (current) drug therapy; Z79.82 Long term (current) use of aspirin; Z79.84 Long term (current) use of oral hypoglycemic drugs; Z86.73 Personal history of transient ischemic attack (TIA), and cerebral infarction without residual deficits; Z98.890 Other specified postprocedural states; Z95.0 Presence of cardiac pacemaker; W18.39XA Other fall on same level, initial encounter; Y93.89 Activity, other specified; Y92.89 Other specified places as the place of occurrence of the external cause; Y99.8 Other external cause status
CPT/HCPCS: 36415; 71045; 71250; 80048; 81003; 83880; 84145; 84484; 85025; 93005; 96360; 99285; J7030

== ENCOUNTER 2024-06-02 07:29 | Inpatient (IN) | payer MEDICARE, MEDICAID ==
[2024-05-30 11:25] LABS: BASOPHILS # (AUTO) 0.1 X10'3 (0-0.2); BASOPHILS % (AUTO) 1.2 % (0-1); EOSINOPHILS # (AUTO) 0.4 X10'3 (0-0.9); EOSINOPHILS % (AUTO) 3.5 % (0-6); LYMPHOCYTES # (AUTO) 1.5 X10'3 (1.1-4.8); LYMPHOCYTES % (AUTO) 14.8 % (21-51); MEAN CORPUSCULAR HEMOGLOBIN 29.8 PG (27.0-31.0); MEAN CORPUSCULAR VOLUME 90.4 FL (78-98); MEAN PLATELET VOLUME 9.4 FL (7.4-10.4); MONOCYTES # (AUTO) 0.6 X10'3 (0-0.9); NEUTROPHILS # (AUTO) 7.6 X10'3 (1.8-7.7); NEUTROPHILS % (AUTO) 74.5 % (42-75); PRE OP HEMATOCRIT 47.3 % (42.0-52.0); PRE OP HEMOGLOBIN 15.6 g/dL (14.0-17.9); PRE OP PLATELET COUNT 175 X10'3 (140-440); PRE OP WHITE BLOOD COUNT 10.2 10'3 (4.8-10.8); RED BLOOD COUNT 5.24 X10'6 (4.70-6.10); RED CELL DISTRIBUTION WIDTH 15.2 % (11.5-14.5)
[2024-05-30 11:27] LABS: BILIRUBIN,URINE NEGATIVE (Neg); CLARITY,URINE CLEAR (Clear); COLOR,URINE YELLOW (Yellow); GLUCOSE, URINE 100 mg/dl (Neg); KETONES,URINE NEGATIVE (Neg); LEUKOCYTE ESTERASE ,URINE NEGATIVE (Neg); NITRITES, URINE NEGATIVE (Neg); OCCULT BLOOD,URINE NEGATIVE (Neg); PROTEIN,URINE NEGATIVE (Neg); UROBILINOGEN,URINE 0.2 E.U/dL (0.2-1.0)
[2024-05-30 11:33] LABS: UA COLLECTION TYPE CLN CATCH MIDSTREAM
[2024-05-30 11:38] LABS: PRE OP INR 1.1 INR; PRE OP PROTIME 11.7 SECONDS (9.0-12.0)
[2024-05-30 11:42] LABS: HEMOGLOBIN A1C 7.4 % (4.5-6.2)
[2024-05-30 11:58] LABS: ALBUMIN 4.1 G/DL (3.4-5.0); ALBUMIN/GLOBULIN RATIO 1.1 (1.1-1.5); ALKALINE PHOSPHATASE 93 IU/L (46-116); BLOOD UREA NITROGEN 24 MG/DL (7-18); BUN/CREATININE RATIO 15.2 (10.0-20.0); CALCIUM 9.1 MG/DL (8.5-10.1); CHLORIDE 101 MMOL/L (99-107); CREATININE 1.58 MG/DL (0.60-1.10); PRE OP ALT 38 U/L (30-65); PRE OP ANION GAP 9 (8-16); PRE OP AST 31 U/L (10-37); PRE OP BILIRUB, TOTAL 0.5 MG/DL (0.0-1.0); PRE OP GLUCOSE 185 MG/DL (70-104); PRE OP POTASSIUM 4.7 MMOL/L (3.4-5.1); PRE OP SODIUM 140 MMOL/L (135-145); PRO BRAIN NATRIURETIC PEPTIDE 141 PG/ML (0-450); TOTAL CARBON DIOXIDE 29.6 MMOL/L (24-32); TOTAL PROTEIN 7.7 G/DL (6.4-8.2); eGFR 43 ML/MIN
[2024-05-30 12:01] LABS: THYROID STIMULATING HORMONE 68.63 ulU/ml (0.34-4.50)
[~2024-06-02] VITALS: Ht 185.4 cm; Wt 112.9 kg
[2024-06-02] VITALS (38 sets, daily range): BP systolic 107–155; BP diastolic 55–109; PULSE 60–116; RESP 7–20; TEMP 96.5–98.4; O2SAT 91–96
[2024-06-02] MEDS: cefazolin 2gm/D5W 100mL 100 ML IV ONE (05:30)
[~2024-06-02 07:29] MED LIST changes: -APIX5TAB3 PO; -ASPI-1071 PO; -DULO60CA65 PO; +FURO20TA4 PO; -PREG300C PO; +nitroPRUSSIDE (NIPRIDE) (200MCG/ML) 100ML Drip IV SCH; +ondansetron/PF 4mg/2ml inj IV PRN; +phenylephrine inj 50 MG in normal saline 250ml IV solN IV SCH; +protamine sulfate 10mg/ml inj. ONE
[2024-06-02] MEDS: vancomycin 1,500 MG in NS 300ml IV soln IV ONE (09:18)
[2024-06-02] MEDS: famotidine 20mg tablet PO ONE (09:19)
[2024-06-02] MEDS: aspirin 325mg tablet PO ONE (09:19)
[2024-06-02] MEDS: HYDROcodone/acetaminophen 10/325mg tab PO ONE (09:19)
[2024-06-02] MEDS: ringers solution, lacted 1,000 ML IV SCH (09:19)
[2024-06-02] MEDS: insulin regular, human U-100 10ml vial - multi-dose IV ONE (09:33)
[2024-06-02] MEDS ORDERED: LIDOcaine 1% (10mg/ml) 2ml vial ONE (09:47)
[2024-06-02] MEDS ORDERED: heparin 1,000 UNITS/NS 500ml 1,500 ML ONE (10:00)
[2024-06-02] MEDS ORDERED: iohexol 350MG/ML 100ml bottle IV ONE (10:00)
[2024-06-02] MEDS ORDERED: sevoflurane 250ml liquid IH ONE (10:02)
[2024-06-02] MEDS ORDERED: midazolam 1 mg/ML 2ml injection ONE (10:13)
[2024-06-02] MEDS ORDERED: fentaNYL/PF 50MCG/1 ML 2ML syringe ONE (10:13)
[2024-06-02] MEDS ORDERED: propofol inj 20 ML IV ONE (10:15)
[2024-06-02] MEDS ORDERED: heparin 1,000unit/ml 10ml vial 10 ML ONE (10:33)
[2024-06-02] MEDS ORDERED: rocuronium 10mg/ml inj IV ONE (10:40)
[2024-06-02] MEDS ORDERED: sugammadex 200mg/2ml injection IV ONE (11:17)
[2024-06-02] MEDS ORDERED: DEXTROSE 15 GM of carb/4 tabs (each vial/BOTTLE has 4 tablets) PO PRN ×2 (11:25)
[2024-06-02] MEDS ORDERED: potassium Cl 20mEq/100mL bag 100 ML IV PRN (11:25)
[2024-06-02] MEDS ORDERED: potassium CL 10mEq/100ml bag 100 ML IV PRN (11:25)
[2024-06-02] MEDS ORDERED: magnesium sulf-water 4G/100mL 100 ML IV PRN (11:25)
[2024-06-02] MEDS ORDERED: ondansetron/PF 4mg/2ml inj IV PRN ×2 (11:25→11:55)
[2024-06-02] MEDS ORDERED: proCHLORperazine 10 MG/2 ml inj IV PRN ×2 (11:25→11:55)
[2024-06-02] MEDS ORDERED: docusate sod 100mg capsule PO PRN (11:25)
[2024-06-02] MEDS ORDERED: diphenhydrAMINE 25mg capsule PO PRN (11:25)
[2024-06-02] MEDS ORDERED: dextrose 50%-water 50ml dispensing syringe IV PRN ×2 (11:25)
[2024-06-02] MEDS ORDERED: hydrALAZINE 20mg/ml inj. IV PRN (11:25)
[2024-06-02] MEDS ORDERED: labetalol 20mg/4ml (5mg/ml) syringe IV PRN ×2 (11:25→11:55)
[2024-06-02] MEDS ORDERED: acetaminophen 325mg tablet PO PRN (11:25)
[2024-06-02] MEDS ORDERED: glucagon, human recombinant 1mg kit SUBCUT PRN (11:25)
[2024-06-02] MEDS ORDERED: potassium Cl 40MEQ/1/2NS 520ml 520 ML IV PRN (11:25)
[2024-06-02] MEDS ORDERED: potassium Cl 40MEQ/270ML bag 250 ML IV PRN (11:25)
[2024-06-02] MEDS ORDERED: magnesium sulf-water 2g/50mL 50 ML IV PRN (11:25)
[2024-06-02] MEDS ORDERED: pantoprazole 40mg Tablet.DR PO PRN (11:25)
[2024-06-02] MEDS ORDERED: potassium Cl 20 mEq SR tablet PO PRN (11:25)
[2024-06-02] MEDS: meperidine/PF 25mg/ml syringe IV ONE (11:38)
[2024-06-02] MEDS ORDERED: morphine 4 MG/ML inj SYRINge IV PRN (11:55)
[2024-06-02] MEDS ORDERED: ringers solution, lacted 1,000 ML IV SCH (11:55)
[2024-06-02] MEDS ORDERED: morphine 2 MG/ML inj. syringe IV PRN (11:55)
[2024-06-02] MEDS ORDERED: enalaprilat dihydrate 2.5mg/2ml vial IV PRN (11:55)
[2024-06-02] MEDS ORDERED: meperidine/PF 25mg/ml syringe IV PRN ×3 (11:55)
[2024-06-02] MEDS: ipratropium/albuterol 3ml nebule NEB ONE (11:56)
[2024-06-02] MEDS ORDERED: INSULIN LISPRO 100 UNIT/ML INSULN.PEN MULTI-DOSE SQ SCH (12:00)
[2024-06-02] MEDS: HYDROcodone/acetaminophen 5mg/325mg tablet PO PRN (12:12)
[2024-06-02] MEDS: ALPRAZolam 0.25mg tablet PO PRN (12:12)
[2024-06-02] MEDS: normal saline 1000ml 1,000 ML IV SCH (13:12)
[2024-06-02] MEDS: INSULIN LISPRO 100 UNIT/ML INSULN.PEN MULTI-DOSE SQ SCH (14:22)
[2024-06-02] MEDS: ceFAZolin 1GM/D5W- ADD-VANTAGE 50 ML IV SCH (16:12)
[2024-06-02] MEDS: sod chloride 0.9% 10ml flush syringe IV SCH (16:12)
[2024-06-02] MEDS: Budesonide/Glycopyr/Formoterol (Breztri Aerosphere Inhaler) IH SCH (20:00)
[2024-06-02] MEDS: lisinopril 10 MG tablet PO SCH (20:07)
[2024-06-02] MEDS: doxazosin mesylate 2mg tablet PO SCH (20:07)
[2024-06-02] MEDS: metFORMIN 500mg tablet PO SCH (20:07)
[2024-06-02] MEDS: amLODIPine 5mg tablet PO SCH (20:08)
[2024-06-02] MEDS: vancomycin/NS 1 GM ADD-VANTAGE 250 ML IV SCH (20:09)
[2024-06-02] MEDS: morphine 2 MG/ML inj. syringe IV PRN (21:34)
[2024-06-03 02:00] VITALS: BP 121/63; PULSE 63; RESP 15; TEMP 97.3; O2SAT 98
[2024-06-03 06:00] VITALS: BP 101/65; PULSE 74; RESP 20; TEMP 98.2; O2SAT 95
[2024-06-03] MEDS ORDERED: levoTHYROXINE 175mcg tablet PO SCH (07:00)
[2024-06-03] MEDS ORDERED: LEVO100T9 PO (07:07)
[2024-06-03] MEDS: levoTHYROXINE 100mcg tablet PO SCH (07:33)
[2024-06-03] MEDS: furosemide 20MG tablet PO SCH (07:34)
[2024-06-03 08:35] LABS: BASOPHILS # (AUTO) 0.1 X10'3 (0-0.2); BASOPHILS % (AUTO) 0.7 % (0-1); EOSINOPHILS # (AUTO) 0.2 X10'3 (0-0.9); EOSINOPHILS % (AUTO) 2.1 % (0-6); HEMATOCRIT 43.9 % (42.0-52.0); HEMOGLOBIN 14.6 g/dl (14.0-17.9); LYMPHOCYTES % (AUTO) 10.4 % (21-51); MEAN CORPUSCULAR HEMOGLOBIN 30.1 PG (27.0-31.0); MEAN CORPUSCULAR HGB CONC 33.3 g/dL (33.0-36.5); MEAN CORPUSCULAR VOLUME 90.6 FL (78-98); MEAN PLATELET VOLUME 9.6 FL (7.4-10.4); MONOCYTES # (AUTO) 0.9 X10'3 (0-0.9); MONOCYTES % (AUTO) 8.9 % (2-12); NEUTROPHILS # (AUTO) 7.4 X10'3 (1.8-7.7); NEUTROPHILS % (AUTO) 77.9 % (42-75); PLATELET COUNT 126 X10'3 (140-440); RED BLOOD COUNT 4.85 X10'6 (4.70-6.10); RED CELL DISTRIBUTION WIDTH 15.2 % (11.5-14.5); WHITE BLOOD COUNT 9.5 X10'3 (4.5-11.0)
[2024-06-03 08:48] LABS: ALANINE AMINOTRANSFERASE 43 U/L (12-78); ALBUMIN 3.6 G/DL (3.4-5.0); ALBUMIN/GLOBULIN RATIO 1.1 (1.1-1.5); ALKALINE PHOSPHATASE 58 IU/L (46-116); ANION GAP 12 (8-16); ASPARTATE AMINO TRANSFERASE 43 U/L (10-37); BLOOD UREA NITROGEN 14 MG/DL (7-18); BUN/CREATININE RATIO 11.4 (10.0-20.0); CALCIUM 8.5 MG/DL (8.5-10.1); CHLORIDE 101 MMOL/L (99-107); CREATININE 1.23 MG/DL (0.60-1.10); GLUCOSE 173 MG/DL (70-104); MAGNESIUM 1.8 MG/DL (1.5-2.4); POTASSIUM 3.9 MMOL/L (3.5-5.1); PRO BRAIN NATRIURETIC PEPTIDE 218 PG/ML (0-450); SODIUM 140 MMOL/L (135-145); TOTAL CARBON DIOXIDE 27.5 MMOL/L (24-32); TOTAL PROTEIN 6.9 G/DL (6.4-8.2); eCRCL 59 ML/MIN; eGFR 57 ML/MIN
[2024-06-03 09:48] VITALS: RESP 14; O2SAT 93
[2024-06-03] MEDS ORDERED: APIX5TAB3 PO (10:54)
== END 2024-06-03 10:56 | disposition home or self-care (01) | DRG 267 ==
LOC: PAS IN 07:29 → UNDOADMIN 07:29 → PAS IN 17:30 → PCU 3S 17:30 → UNDODISIN 06-03 10:56
PROVIDERS: ADMIT Internal Medicine Cardiovascular Disease; ATTEND Internal Medicine Cardiovascular Disease
PROC: 02RF38Z Replacement of Aortic Valve with Zooplastic Tissue, Percutaneous Approach (ICD-10-PCS; principal; 2024-06-03)
PROC: 03HY32Z Insertion of Monitoring Device into Upper Artery, Percutaneous Approach (ICD-10-PCS; 2024-06-03)
PROC: B41D1ZZ Fluoroscopy of Aorta and Bilateral Lower Extremity Arteries using Low Osmolar Contrast (ICD-10-PCS; 2024-06-03)
PROC: B24BZZ4 Ultrasonography of Heart with Aorta, Transesophageal (ICD-10-PCS; 2024-06-03)
DX: I35.0 Nonrheumatic aortic (valve) stenosis (principal); Z00.6 Encounter for examination for normal comparison and control in clinical research program; I50.22 Chronic systolic (congestive) heart failure; I49.5 Sick sinus syndrome; I10 Essential (primary) hypertension; E78.5 Hyperlipidemia, unspecified; E11.9 Type 2 diabetes mellitus without complications; E03.9 Hypothyroidism, unspecified; Z86.73 Personal history of transient ischemic attack (TIA), and cerebral infarction without residual deficits; Z88.8 Allergy status to other drugs, medicaments and biological substances; Z79.84 Long term (current) use of oral hypoglycemic drugs
CPT/HCPCS: 33361; 36415; 71045; 71046; 76376; 76937; 80053; 81003; 82948; 83036; 83735; 83880; 84439; 84443; 85025; 85347; 85610; 85730; 86885; 86900; 86901; 86920; 87081; 93005; 93308; 93312; 93325; 94640; 94760; A4615; A4618; A6212; A6258; A6449; A6590; C1756; C1760; C1769; C1894; G0378; J0690; J1644; J1815; J2175; J2250; J2270; J2371; J2704; J2710; J2720; J3010; J3370; J3490; J7030; J7040; J7050; J7120; Q9967

== ENCOUNTER 2024-08-26 07:47 | Emergency (ER) | payer MEDICARE, MEDICAID ==
[~2024-08-26] VITALS: Ht 185.4 cm; Wt 106.0 kg
[~2024-08-26 07:47] MED LIST changes: +APIX5TAB3 PO; +LEVO100T9 PO; -LEVO175C2 PO; -ROSU20TA73 PO; +ROSU20TA98 PO; -nitroPRUSSIDE (NIPRIDE) (200MCG/ML) 100ML Drip IV SCH; -ondansetron/PF 4mg/2ml inj IV PRN; -phenylephrine inj 50 MG in normal saline 250ml IV solN IV SCH; -protamine sulfate 10mg/ml inj. ONE
[2024-08-26] MEDS ORDERED: iohexol 300mg/ml 100ml inj. ONE (08:17)
[2024-08-26 08:19] LABS: BASOPHILS # (AUTO) 0.1 X10'3 (0-0.2); BASOPHILS % (AUTO) 0.7 % (0-1); EOSINOPHILS # (AUTO) 0.2 X10'3 (0-0.9); EOSINOPHILS % (AUTO) 1.6 % (0-6); HEMATOCRIT 46.3 % (42.0-52.0); HEMOGLOBIN 15.7 g/dl (14.0-17.9); LYMPHOCYTES # (AUTO) 1.6 X10'3 (1.1-4.8); LYMPHOCYTES % (AUTO) 13.8 % (21-51); MEAN CORPUSCULAR HEMOGLOBIN 30.4 PG (27.0-31.0); MEAN CORPUSCULAR HGB CONC 33.8 g/dL (33.0-36.5); MEAN CORPUSCULAR VOLUME 89.7 FL (78-98); MEAN PLATELET VOLUME 9.1 FL (7.4-10.4); MONOCYTES # (AUTO) 1.1 X10'3 (0-0.9); MONOCYTES % (AUTO) 9.8 % (2-12); NEUTROPHILS # (AUTO) 8.3 X10'3 (1.8-7.7); NEUTROPHILS % (AUTO) 74.1 % (42-75); PLATELET COUNT 143 X10'3 (140-440); RED BLOOD COUNT 5.15 X10'6 (4.70-6.10); RED CELL DISTRIBUTION WIDTH 14.5 % (11.5-14.5); WHITE BLOOD COUNT 11.2 X10'3 (4.5-11.0)
[2024-08-26 08:32] LABS: APTT 26 SECONDS (22-32); INR 1.1 INR; PROTHROMBIN TIME 11.4 SECONDS (9.0-12.0)
[2024-08-26] MEDS: morphine 4 MG/ML inj SYRINge IV ONE (08:54)
[2024-08-26] MEDS: diphenhydrAMINE 50 mg/ml inj IV ONE (08:55)
[2024-08-26 09:15] LABS: ALBUMIN 3.8 G/DL (3.4-5.0); AMYLASE 79 U/L (25-115); ANION GAP 13 (8-16); BLOOD UREA NITROGEN 41 MG/DL (7-18); BUN/CREATININE RATIO 19.1 (10.0-20.0); CHLORIDE 103 MMOL/L (99-107); CKMB RELATIVE INDEX 2.3 RATIO (0-2.5); CREATINE KINASE 330 U/L (39-308); CREATINE KINASE MB 7.7 ng/ml (0.3-3.6); CREATININE 2.15 MG/DL (0.60-1.10); ETHANOL < 10 MG/DL (<10); GLUCOSE 187 MG/DL (70-104); LIPASE 43 U/L (16-77); POTASSIUM 3.4 MMOL/L (3.5-5.1); SODIUM 138 MMOL/L (135-145); TOTAL CARBON DIOXIDE 21.6 MMOL/L (24-32); eCRCL 33 ML/MIN; eGFR 30 ML/MIN
[2024-08-26] MEDS: normal saline 1000ml 1,000 ML IV ONE (10:14)
[2024-08-26 10:38] LABS: PLATELET ESTIMATE DECREASED; TOTAL CELLS COUNTED 100
[2024-08-26 10:59] LABS: URINE AMPHETAMINE SCREEN NEGATIVE (Neg); URINE BARBITUATE SCREEN NEGATIVE (Neg); URINE BENZODIAZEPINES SCREEN NEGATIVE (Neg); URINE CANNABINOID SCREEN NEGATIVE (Neg); URINE COCAINE SCREEN NEGATIVE (Neg); URINE METHADONE SCREEN NEGATIVE (Neg); URINE OPIATE SCREEN POSITIVE (Neg); URINE PHENCYCLIDINE SCREEN NEGATIVE (Neg)
[2024-08-26 11:03] LABS: BILIRUBIN,URINE NEGATIVE (Neg); CLARITY,URINE CLEAR (Clear); COLOR,URINE YELLOW (Yellow); GLUCOSE, URINE NEGATIVE (Neg); KETONES,URINE NEGATIVE (Neg); LEUKOCYTE ESTERASE ,URINE NEGATIVE (Neg); NITRITES, URINE NEGATIVE (Neg); OCCULT BLOOD,URINE NEGATIVE (Neg); PH,URINE 5.5 (4.8-8.0); PROTEIN,URINE NEGATIVE (Neg); UROBILINOGEN,URINE 0.2 E.U/dL (0.2-1.0)
[2024-08-26 11:06] LABS: UA COLLECTION TYPE URINAL
[2024-08-26 13:15] VITALS: BP 97/76; PULSE 103; RESP 17; TEMP 97.4; O2SAT 98
== END 2024-08-26 13:17 | disposition home or self-care (01) ==
LOC: ER 07:47
DX: S00.01XA Abrasion of scalp, initial encounter (principal); I48.91 Unspecified atrial fibrillation; E78.00 Pure hypercholesterolemia, unspecified; E11.9 Type 2 diabetes mellitus without complications; I10 Essential (primary) hypertension; Z95.0 Presence of cardiac pacemaker; Z86.73 Personal history of transient ischemic attack (TIA), and cerebral infarction without residual deficits; Z79.01 Long term (current) use of anticoagulants; Z88.6 Allergy status to analgesic agent; Z88.8 Allergy status to other drugs, medicaments and biological substances; V89.2XXA Person injured in unspecified motor-vehicle accident, traffic, initial encounter; Y93.89 Activity, other specified; Y92.89 Other specified places as the place of occurrence of the external cause; Y99.8 Other external cause status
CPT/HCPCS: 36415; 70460; 71045; 71260; 72125; 74177; 80048; 80305; 81003; 82150; 82550; 82553; 82948; 83690; 83874; 84484; 85007; 85025; 85610; 85730; 86885; 86900; 86901; 93005; 96361; 96374; 96375; 99285; A6258; A6402; A6446; G0480; J1200; J2270; J7030; Q9967; 80320; A6449